=== PATIENT | female | born 1930 | race Caucasian/White ===

== ENCOUNTER 2017-01-07 20:09 | Emergency (ER) | payer OTHER ==
[~2017-01-07] VITALS: Ht 162.6 cm; Wt 65.0 kg
[2017-01-07 20:20] VITALS: BP 180/91; PULSE 86; RESP 18; TEMP 98; O2SAT 98; O2SAT 99
[2017-01-07] MEDS ORDERED: AMLO5TAB2 PO (20:27)
[2017-01-07] MEDS ORDERED: SODIUM CHLORIDE 0.9% FLUSH 10 ML FLUSH IVF PRN (20:30)
[2017-01-07] MEDS ORDERED: ONDANSETRON HCL 4 MG/2 ML VIAL IV PUSH ONE (20:30)
[2017-01-07] MEDS ORDERED: MORPHINE SULFATE 4 MG/ML INJ IV PUSH ONE (20:30)
[2017-01-07] MEDS ORDERED: SODIUM CHLORID 0.9% 500 ML INJ 500 ML IV ONE (20:30)
--- NOTE | 2017-01-07 20:33 | PD ---
HPI Chief Complaint: Fall Time Seen by Provider: 20:22 Travel History International Travel<30 days: No Contact w/Intl Traveler<30days: No Traveled to known affect area: No History of Present Illness HPI Patient is an 86-year-old female with history of hypertension who presents to emergency room with complaints of left sided shoulder pain. Patient reports that she was tried to help her who was falling, reports that they both ended up falling onto the ground landing onto her left shoulder. Patient denies any trauma to her head her neck, reports increased pains to her left shoulder. EMS reports that when they arrived on scene, patient was hypotensive with systolics in the 80s, patient reports no chest pain or shortness of breath this time. Patient denies any headache or dizziness, she currently is not on any anticoagulants. Patient's only complaint at this time his left sided shoulder pain. Patient with no abdominal pain, no nausea or vomiting. PFSH Past Medical History Diminished Hearing: No Hypertension: Yes Tetanus Vaccination: Unknown Influenza Vaccination: No Past Surgical History Surgical History: No Previous Surgery Social History Alcohol Use: Yes (OCCASSIONALLY) Tobacco Use: No Substance Use: No Allergies-Medications (Allergen,Severity, Reaction): Coded Allergies: No Known Allergies (Unverified , 01/07/17) Reported Meds & Prescriptions Reported Meds & Active Scripts Active Reported Amlodipine (Amlodipine Besylate) 5 Mg Tab 5 Mg PO DAILY Review of Systems General / Constitutional: No: Fever Eyes: No: Visual changes HENT: No: Headaches, Vertigo, Lightheadedness, Sore Throat Cardiovascular: No: Chest Pain or Discomfort, Palpitations, Irregular Rhythm, Tachycardia Respiratory: No: Shortness of Breath Gastrointestinal: No: Abdominal Pain Genitourinary: No: Dysuria Musculoskeletal: Positive: Limited ROM (left humerus), Pain (left humerus), No : Arthralgias Skin: No Rash Neurologic: Positive: Dizziness, Syncope (near syncope), No: Weakness Psychiatric: No: Depression Endocrine: No: Polydipsia Hematologic/Lymphatic: No: Easy Bruising Physical Exam Narrative GENERAL: moderate distress SKIN: Focused skin assessment warm/dry. HEAD: Atraumatic. Normocephalic. EYES: Pupils equal and round. No scleral icterus. No injection or drainage. ENT: No nasal bleeding or discharge. Mucous membranes pink and moist. NECK: Trachea midline. No JVD. CARDIOVASCULAR: Regular rate and rhythm. No murmur appreciated. RESPIRATORY: No accessory muscle use. Clear to auscultation. Breath sounds equal bilaterally. GASTROINTESTINAL: Abdomen soft, non-tender, nondistended. Hepatic and splenic margins not palpable. MUSCULOSKELETAL: RUE: normal exam, LUE: patient with pain to left proximal humerus, no pain with rom to left elbow or left wrist, pulses intact, neurovascularly intact NEUROLOGICAL: Awake and alert. No obvious cranial nerve deficits. Motor grossly within normal limits. Normal speech. PSYCHIATRIC: Appropriate mood and affect; insight and judgment normal. Data Data Last Documented VS Vital Signs Date Time Temp Pulse Resp B/P Pulse Ox O2 Delivery O2 Flow Rate FiO2 01/07/17 20:20 98.0 86 18 180/91 99 Orders Ckmb (Isoenzyme) Profile (01/07/17 20:27) Complete Blood Count With Diff (01/07/17 20:27) Comprehensive Metabolic Panel (01/07/17 20:27) Prothrombin Time / Inr (Pt) (01/07/17 20:27) Act Partial Throm Time (Ptt) (01/07/17 20:27) Troponin I (01/07/17 20:27) Chest, Single Ap (01/07/17 20:27) Ecg Monitoring (01/07/17 20:27) Iv Access Insert/Monitor (01/07/17 20:27) Oximetry (01/07/17 20:27) Sodium Chloride 0.9% Flush (Ns Flush) (01/07/17 20:30) Sodium Chlorid 0.9% 500 Ml Inj (Ns 500 M (01/07/17 20:30) Humerus (Min 2vws) (01/07/17 ) Morphine Inj (Morphine Inj) (01/07/17 20:30) Ondansetron Inj (Zofran Inj) (01/07/17 20:30) Shoulder, Limited(2vws) (01/07/17 ) CKMB (01/07/17 20:40) CKMB% (01/07/17 20:40) Oxycodone-Acetamin 5-325 Mg (Percocet (01/07/17 22:00) Ketorolac Inj (Toradol Inj) (01/07/17 22:00) Splint Or Brace Apply/Monitor (01/07/17 21:50) Sling Cradle Arm (01/07/17 ) Labs Laboratory Tests Test 01/07/17 20:40 White Blood Count 7.5 TH/MM3 Red Blood Count 4.28 MIL/MM3 Hemoglobin 13.8 GM/DL Hematocrit 39.9 % Mean Corpuscular Volume 93.1 FL Mean Corpuscular Hemoglobin 32.3 PG Mean Corpuscular Hemoglobin 34.7 % Concent Red Cell Distribution Width 13.7 % Platelet Count 205 TH/MM3 Mean Platelet Volume 8.8 FL Neutrophils (%) (Auto) 59.9 % Lymphocytes (%) (Auto) 30.3 % Monocytes (%) (Auto) 7.3 % Eosinophils (%) (Auto) 2.0 % Basophils (%) (Auto) 0.5 % Neutrophils # (Auto) 4.5 TH/MM3 Lymphocytes # (Auto) 2.3 TH/MM3 Monocytes # (Auto) 0.6 TH/MM3 Eosinophils # (Auto) 0.1 TH/MM3 Basophils # (Auto) 0.0 TH/MM3 CBC Comment DIFF FINAL Differential Comment Prothrombin Time 10.6 SEC Prothromb Time International 1.0 RATIO Ratio Activated Partial 20.4 SEC Thromboplast Time Sodium Level 137 MEQ/L Potassium Level 3.7 MEQ/L Chloride Level 103 MEQ/L Carbon Dioxide Level 26.4 MEQ/L Anion Gap 8 MEQ/L Blood Urea Nitrogen 14 MG/DL Creatinine 0.98 MG/DL Estimat Glomerular Filtration 54 ML/MIN Rate Random Glucose 122 MG/DL Calcium Level 8.8 MG/DL Total Bilirubin 0.4 MG/DL Aspartate Amino Transf 25 U/L (AST/SGOT) Alanine Aminotransferase 22 U/L (ALT/SGPT) Alkaline Phosphatase 109 U/L Total Creatine Kinase 137 U/L Creatine Kinase MB 1.5 NG/ML Troponin I LESS THAN 0.02 NG/ML Total Protein 7.2 GM/DL Albumin 3.7 GM/DL MDM Medical Decision Making Medical Screen Exam Complete: Yes Emergency Medical Condition: Yes Interpretation(s) Vital Signs Date Time Temp Pulse Resp B/P Pulse Ox O2 Delivery O2 Flow Rate FiO2 01/07/17 20:20 98.0 86 18 180/91 99 Differential Diagnosis Differential includes humerus fracture, ACS, arrhythmia, electrolyte abnormality Narrative Course Patient is 86-year-old female who presents to emergency room after she fell onto left shoulder trying to catch her . Patient reports no trauma to the head or neck, reports severe pain to her left shoulder/humerus after the fall. Vital Signs Date Time Temp Pulse Resp B/P Pulse Ox O2 Delivery O2 Flow Rate FiO2 01/07/17 20:20 98.0 86 18 180/91 99 Vital signs are stable emergency room, patient is currently not on any anticoagulants. Plan to obtain lab work, will give IV fluids, will administer pain medications as well as antiemetics. X-ray of the left humerus, left shoulder, chest ordered. CBC & BMP Diagram 01/07/17 20:40 X-rays of left shoulder shows a minimally displaced fracture to the greater tuberosity of the humerus. Case is reviewed with Dr. Martin - patient safe to be discharged home with a sling and outpatient follow up I reviewed all labs and studies with patient in detail. Patient will follow up with ortho as outpatient and will return to ER as needed. Diagnosis Primary Impression: Proximal humeral fracture Qualified Code: S42.292A - Other closed displaced fracture of proximal end of left humerus, initial encounter Referrals: Oleksandr Ro MD Patient Instructions: Narcotic given in the ED, General Instructions Additional Instructions: Please provide patient with a copy of her lab work and studies at discharge Please follow up with your primary care doctor Please follow up with orthopedic surgery in 2-3 days Return to ER if symptoms worsen or progress Please do not drive or operate heavy machinery while taking narcotic medications Med/Other Pt SpecificInfo: Prescription(s) given Scripts Ibuprofen 600 Mg [id number] Mg PO Q6H PRN (Pain/Inflammation) #40 TAB Ref 0 Prov:Divya Jaramillo DO 01/07/17 Oxycodone-Acetaminophen (Percocet)5-325 mg Tab1 Tab PO Q6H PRN (PAIN) #20 TAB Ref 0 Prov:Divya Jaramillo DO 01/07/17 Disposition: 01 DISCHARGE HOME Condition: Stable Divya Jaramillo DO Jan 07, 2017 20:33
[2017-01-07 21:02] LABS: AUTOMATED NEUTROPHIL # 4.5 TH/MM3 (1.8-7.7); BASOPHIL % 0.5 % (0.0-2.0); EOSINOPHIL # 0.1 TH/MM3 (0-0.4); HEMATOCRIT 39.9 % (35.0-46.0); HEMO FLAGS DIFF FINAL; LYMPH % 30.3 % (9.0-44.0); LYMPHOCYTE # 2.3 TH/MM3 (1.0-4.8); MEAN CELL VOLUME 93.1 FL (80.0-100.0); MEAN CORPUSCULAR HEMOGLOBIN 32.3 PG (27.0-34.0); MEAN CORPUSCULAR HGB CONC 34.7 % (32.0-36.0); MONO % 7.3 % (0.0-8.0); NEUT % 59.9 % (16.0-70.0); PLATELET COUNT 205 TH/MM3 (150-450); RED BLOOD COUNT 4.28 MIL/MM3 (4.00-5.30); RED CELL DISTRIBUTION WIDTH 13.7 % (11.6-17.2); WHITE BLOOD COUNT 7.5 TH/MM3 (4.0-11.0)
--- NOTE | 2017-01-07 21:20 | RADRPT ---
EXAM DATE/TIME: 01/07/2017 20:59 [facility] COMPARISON: Left humerus the same day. INDICATIONS : Left shoulder pain after fall. MEDICAL HISTORY : None. SURGICAL HISTORY : None. ENCOUNTER: Initial ACUITY: 1 day PAIN SCORE: 10/10 LOCATION: Left shoulder. FINDINGS: There is a minimally displaced fracture through the greater tuberosity of the humerus. Mild hypertrop hic changes of the acromioclavicular joint. CONCLUSION: Left proximal humerus fracture. Jame Fields MD on January 07, 2017 at 21:18 Board Certified Radiologist. This report was verified electronically.
[2017-01-07 21:21] LABS: ALT (GPT) 22 U/L (10-53)
--- NOTE | 2017-01-07 21:25 | RADRPT ---
EXAM DATE/TIME: 01/07/2017 20:54 [facility] COMPARISON: No previous studies available for comparison. INDICATIONS : Chest pain, syncope. MEDICAL HISTORY : None. SURGICAL HISTORY : None. ENCOUNTER: Initial ACUITY: 1 day PAIN SCORE: 2/10 LOCATION: Bilateral chest FINDINGS: A single view of the chest demonstrates the lungs to be symmetrically aerated without evidence of mas s, infiltrate or effusion. The cardiomediastinal contours are unremarkable. Osseous structures are intact. CONCLUSION: No acute disease. Jame Fields MD on January 07, 2017 at 21:23 Board Certified Radiologist. This report was verified electronically.
--- NOTE | 2017-01-07 21:25 | RADRPT ---
EXAM DATE/TIME: 01/07/2017 20:57 [facility] COMPARISON: SHOULDER LEFT LTD (2VWS), January 07, 2017, 20:59. INDICATIONS : Left humerus pain after fall. MEDICAL HISTORY : None. SURGICAL HISTORY : None. ENCOUNTER: Initial ACUITY: 1 day PAIN SCORE: 10/10 LOCATION: Left proximal humerus. FINDINGS: Normal bone density. Mildly displaced fracture of the greater tuberosity identified. Mild hypertrophi c changes of the acromioclavicular joint. CONCLUSION: Left proximal humerus fracture. Jame Fields MD on January 07, 2017 at 21:23 Board Certified Radiologist. This report was verified electronically.
[2017-01-07 21:28] LABS: ALKALINE PHOSPHATASE 109 U/L (45-117); ANION GAP 8 MEQ/L (5-15); AST (GOT) 25 U/L (15-37); BICARBONATE 26.4 MEQ/L (21.0-32.0); BLOOD UREA NITROGEN 14 MG/DL (7-18); CHLORIDE 103 MEQ/L (98-107); CREATINE KINASE 137 U/L (26-192); GLOMERULAR FILTRATION RATE 54 ML/MIN (>89); SODIUM (NA) 137 MEQ/L (136-145); TOTAL BILIRUBIN ADULT 0.4 MG/DL (0.2-1.0)
[2017-01-07 21:30] LABS: PROTHROMBIN TIME - PATIENT 10.6 SEC (9.8-11.6)
[2017-01-07 21:38] LABS: POTASSIUM 3.7 MEQ/L (3.5-5.1)
[2017-01-07 21:49] LABS: APTT (PATIENT) 20.4 SEC (24.3-30.1)
[2017-01-07 21:51] LABS: CKMB 1.5 NG/ML (0.5-3.6)
[2017-01-07 22:00] VITALS: BP 151/86; PULSE 80; RESP 16; O2SAT 98
[2017-01-07] MEDS ORDERED: KETOROLAC TROMETHAMINE 30 MG/ML (IVP) VIAL IV PUSH ONE (22:00)
[2017-01-07] MEDS ORDERED: oxyCODONE/ACETAMINOPHEN 5 MG/325 MG TAB PO ONE (22:00)
[2017-01-07] MEDS ORDERED: IBUP-232 PO (22:56)
[2017-01-07] MEDS ORDERED: PERC5TAB12 PO (22:56)
== END 2017-01-07 23:16 | disposition home or self-care (01) ==
LOC: NEPC 20:09
DX: S42.202A Unspecified fracture of upper end of left humerus, initial encounter for closed fracture (principal); R42 Dizziness and giddiness; R55 Syncope and collapse; I10 Essential (primary) hypertension; W19.XXXA Unspecified fall, initial encounter; Z79.899 Other long term (current) drug therapy
CPT/HCPCS: 71010; 73030; 73060; 80053; 82550; 82552; 84484; 85025; 85610; 85730; 96361; 96374; 96375; 99284; J1885; J2270; J2405; J7040